=== PATIENT | male | born 1955 | race Caucasian/White ===

== ENCOUNTER 2016-11-13 20:25 | Emergency (ER) | payer OTHER ==
[~2016-11-13] VITALS: Ht 177.8 cm; Wt 81.6 kg
[~2016-11-13 20:25] MED LIST: XANAX0.5 MG ORAL
--- NOTE | 2016-11-13 21:09 | Emergency Room Report ---
History of Present Illness General Chief Complaint: Syncope Source: Patient Present Illness HPI 61YOM BIBEMS with ?syncope at home Per , never any LOC Bumped head on ground when he went to ground and caught himself on hands/knees Not on ASA, AC Denies headache, nausea/vomiting, fever/chills, chest pain, SOB, palpitations Feels well otherwise - swam 160 laps in pool earlier. No known PMHx. Took an "edible" at home then had a drink before episode EMS states low BP at home, improved with IVF hydration Allergies: Coded Allergies: No Known Allergies (Unverified , 11/13/16) Patient History Past Medical History: none Past Surgical History: none Pertinent Family History: none Social History: Reports: alcohol use Immunizations: UTD Reviewed Nursing Documentation: PMH: Agreed, PSxH: Agreed Nursing Documentation-PMH Past Medical History: No Stated History Review of Systems All Other Systems: negative except mentioned in HPI Physical Exam Vital Signs Date Time Temp Pulse Resp B/P (MAP) Pulse Ox O2 Delivery O2 Flow Rate FiO2 11/13/16 20:18 97.5 82 16 107/67 97 Room Air Sp02 EP Interpretation: reviewed, normal General Appearance: normal inspection, well appearing, no apparent distress, alert, GCS 15, non-toxic Head: normocephalic, atraumatic Eyes: bilateral eye PERRL, bilateral eye EOMI ENT: normal ENT inspection, hearing grossly normal, normal voice Neck: normal inspection, full range of motion, supple, no bony tend Respiratory: normal inspection, lungs clear, normal breath sounds, no respiratory distress, no retraction, no wheezing Cardiovascular #1: regular rate, rhythm, no edema Gastrointestinal: normal inspection, normal bowel sounds, non tender, soft, no guarding, no hernia Genitourinary: no CVA tenderness Musculoskeletal: normal inspection, back normal, normal range of motion, Yovany' s Sign negative Neurologic: normal inspection, alert, oriented x3, responsive, manager [place] III-XII nml as tested, motor strength/tone normal, speech normal Psychiatric: normal inspection, judgement/insight normal, mood/affect normal Skin: normal inspection, normal color, no rash Lymphatic: normal inspection Medical Decision Making Diagnostic Impression: Primary Impression: Syncope Qualified Codes: R55 - Syncope and collapse Additional Impression: Hypotension Qualified Codes: I95.9 - Hypotension, unspecified ER Course No PMHx, no precipitating chest pain, SOB, palpitations, abd pain Very healthy Likely incident precipitated by ETOH, MJ edible ECG is NSR, no ischemia, or arrhythmia ?slighly dehydrated from swimming Feels better after hydration DC home EKG Diagnostic Results Rate: normal Rhythm: NSR ST Segments: no acute changes ASA given to the pt in ED: No Rhythm Strip Diag. Results EP Interpretation: yes Rate: 82 Rhythm: NSR, no PVC's, no ectopy Last Vital Signs Date Time Temp Pulse Resp B/P (MAP) Pulse Ox O2 Delivery O2 Flow Rate FiO2 11/13/16 20:18 97.5 82 16 107/67 97 Room Air Status: improved Disposition: HOME, SELF-CARE Referrals: NON PHYSICIAN (PCP) ANSHUL CLIFFORD M.D. Nov 13, 2016 21:09
[2016-11-13 21:39] VITALS: BP 103/68
[2016-11-13 21:40] VITALS: BP 107/67
--- NOTE | 2016-11-16 18:44 | Cardiology Report ---
APPROVED REPORT EKG Measurement Heart [id number] Normal sinus rhythm Normal ECG
== END 2016-11-13 21:40 | disposition home or self-care (01) ==
LOC: EDBD 20:25 → EMR 20:53
DX: R55 Syncope and collapse (principal); I95.9 Hypotension, unspecified
CPT/HCPCS: 93005; 96361; 96374; 99284